=== PATIENT | female | born 2000 | race Two or more races ===

== ENCOUNTER 2023-10-09 06:57 | Emergency (ER) | payer SELFPAY ==
[~2023-10-09] VITALS: Ht 165.1 cm; Wt 121.0 kg
[2023-10-09 07:14] VITALS: O2SAT 99
[2023-10-09] MEDS: PREDNISONE 20MG TABLET PO STA (08:09)
[2023-10-09 08:20] VITALS: PULSE 80; RESP 20
[2023-10-09] MEDS: ALBUTEROL (0.083%) 2.5MG/3ML NEB HHN SCH (08:20)
[2023-10-09] MEDS: IPRATROPIUM BROMIDE (0.02%) 0.5MG/2.5ML NEB HHN STA (08:21)
[2023-10-09 08:50] VITALS: PULSE 84; RESP 20
[2023-10-09] MEDS ORDERED: P20 MT (09:43)
[2023-10-09] MEDS ORDERED: ALBU6.7H15 INH (09:43)
[2023-10-09 10:34] VITALS: BP 149/69; PULSE 96; RESP 15; TEMP 97.8
== END 2023-10-09 10:37 | disposition home or self-care (01) ==
LOC: ER 07:06
DX: J45.901 Unspecified asthma with (acute) exacerbation (principal); D64.9 Anemia, unspecified; F41.9 Anxiety disorder, unspecified; J45.909 Unspecified asthma, uncomplicated; F32.9 Major depressive disorder, single episode, unspecified
CPT/HCPCS: 81025; 71045; 94640; 99285; J7512; Z7610 ×3

== ENCOUNTER 2025-01-21 23:16 | Emergency (ER) | payer OTHER ==
[~2025-01-21] VITALS: Ht 160 cm; Wt 125.0 kg
[~2025-01-21 23:16] MED LIST: ALBU6.7H15 INH; P20 MT
[2025-01-21 23:33] VITALS: O2SAT 98
[2025-01-22] MEDS: ACETAMINOPHEN 500MG TABLET PO ONE (00:42)
[2025-01-22] MEDS ORDERED: LIDO-53 TP (01:51)
[2025-01-22] MEDS ORDERED: NAPR-1176 MT (01:51)
[2025-01-22] MEDS: KETOROLAC 15MG/ML VIAL IM ONE (02:30)
[2025-01-22 02:33] VITALS: BP 137/82; PULSE 64; RESP 18; TEMP 36.7; O2SAT 98
== END 2025-01-22 02:37 | disposition home or self-care (01) ==
LOC: ER 23:16
DX: S40.011A Contusion of right shoulder, initial encounter (principal); S09.90XA Unspecified injury of head, initial encounter; F41.9 Anxiety disorder, unspecified; J45.909 Unspecified asthma, uncomplicated; F32.A Depression, unspecified; Z79.1 Long term (current) use of non-steroidal anti-inflammatories (NSAID); Z79.899 Other long term (current) drug therapy; V49.9XXA Car occupant (driver) (passenger) injured in unspecified traffic accident, initial encounter; Y93.89 Activity, other specified; Y92.410 Unspecified street and highway as the place of occurrence of the external cause; Y99.8 Other external cause status
CPT/HCPCS: 99285; 81025; 73030; 70450; 96372; J1885; Z7610